=== PATIENT | female | born 1960 | race Asian ===

== ENCOUNTER 2017-08-29 16:06 | Inpatient (IN) | payer OTHER ==
[~2017-08-29] VITALS: Ht 162.6 cm; Wt 70.8 kg
[~2017-08-29 16:06] MED LIST: COZAAR100 MG PO; CRESTOR10 M1 PO
--- NOTE | 2017-08-29 16:35 | NUR ---
PT SENT TO LOBBY TO WAIT FOR AVAILABLE BED. NO DISTRESS NOTED AND ALERT AND ORIENTED
--- NOTE | 2017-08-29 17:13 | NUR ---
Patient brought into the emergency department by daughter to be evaluated for the chief complaints of nausea, vomiting, and lethargy. The patient reports that two days ago at approximately 0500 in the morning she got up to use the restroom and was "still half asleep" and hit her head on the restroom door. Patient denies syncope at that time. There is an area of ecchymosis is to the left side of the patients forehead. The patients daughter reports, as she describes, there was a hematoma in that area. The patients daughter reports that the patient became lethargic today and the nausea and vomiting began yesterday. The patient admits to two episodes of emesis today. The patient admits to currently being nauseous. Upon assessment patient has no facial droop. Handgrips are strong and equal bilaterally. Patient able to speak and clear sentences but in a low tone. Patient speech is baseline per the patients daughter who remains at bedside. PERRL. pt awaiting medical eval.
--- NOTE | 2017-08-29 17:36 | NUR ---
PT REPORTS LMP WAS 9 YEARS AGO
--- NOTE | 2017-08-29 17:45 | NUR ---
PT MEDICATED PER MD ORDER, PLEASE SEE EMAR, PT TOLERATED WELL, PT RESTING IN BED IN A POSITION OF COMFORT, INST PT AND PTS DAUGHTER AT BEDSIDE FOR PT TO PROVIDE URINE SAMPLE SOON POSSIBLE, INST TO PRESS CALL LIGHT, PT AND PTS DAUGHTER VERBALIZED UNDERSTANDING, CALL LIGHT WITHIN REACH, WILL CONTINUE TO MONITOR
[2017-08-29 18:03] LABS: RED CELL DISTRIBUTION WIDTH 12.8 % (11.5-14.5)
[2017-08-29 18:10] LABS: PLATELET COUNT 496 x10^3mcL (130-400)
[2017-08-29 18:20] LABS: BAND NEUTROPHIL 4 % (0-10); BASOPHIL 0 % (0-2); MONOCYTE 4 % (0-7); SEGMENTED NEUTROPHILS 86 % (37-75)
[2017-08-29 18:21] LABS: rbc morphology (normal/abnorm) NORMAL (NORMAL)
[2017-08-29 18:31] LABS: FREE T4 1.25 ng/dL (0.76-1.46)
[2017-08-29 18:54] LABS: T3 TOTAL 0.55 ng/mL
--- NOTE | 2017-08-29 19:00 | NUR ---
EPORT RECEIVED FROM DAY SHIFT RN VSS NO SIGN OF DISTRESS PT TO CT AT THIS TIME AWAIT NEW ORDERS/RESULTS AND DISPO, CONT TO MONITOR
--- NOTE | 2017-08-29 19:08 | NUR ---
LAB AT BEDSIDE FOR BLOOD DRAW
--- NOTE | 2017-08-29 19:14 | NUR ---
PT TAKEN TO CT VIA [facility] IN A STABLE CONDITION
[2017-08-29 19:25] LABS: microscopic required? NO
--- NOTE | 2017-08-29 19:43 | NUR ---
IVF AND MEDICATION GIVEN PER MD ORDER
[2017-08-29 19:53] LABS: UA SPECIFIC GRAVITY >=1.030 (1.005-1.035); urine erythrocyte NEGATIVE (NEGATIVE)
--- NOTE | 2017-08-29 20:00 | NUR ---
LACTIC ACID 2.4 RECEIVED INFORMATION FROM LAB INFORMED OF SAME
[2017-08-29 20:27] LABS: BILIRUBIN TOTAL 1.42 mg/dL (0.20-1.00); CHOLESTEROL/HDL RATIO 3.9
[2017-08-29 20:31] LABS: TOTAL PROTEIN, SERUM 9.3 g/dL (6.4-8.2)
[2017-08-29 20:46] LABS: CALCIUM 9.5 mg/dL (8.5-10.1); CARBON DIOXIDE 15.4 mmol/L (21-32); CREATININE SERUM 1.4 mg/dL (0.6-1.0); POTASSIUM SERUM 5.4 mmol/L (3.5-5.1)
--- NOTE | 2017-08-29 20:47 | NUR ---
MEDICATIONS AND IVF UP PER MD ORDER PT RESTING FAMILY AT BEDSIDE NO SIGN OF DISTRESS AWAITING NEW ORDERS PT TO BE ADMIT
[2017-08-29] MEDS ORDERED: HUMALOG100 UNIT/1 (21:06)
[2017-08-29] MEDS ORDERED: LANTUS SOLOS100 U/M1 (21:06)
--- NOTE | 2017-08-29 21:23 | NUR ---
PT GIVEN 14 U INSULIN PER MD
--- NOTE | 2017-08-29 21:58 | NUR ---
REPORT GIVEN TO POWER RICH ALL QUESTIONS ASKED AND ANSWERED PT TRANSFERED TO ICU 3 VIA [facility] IN STABLE CONDITION W/ ALL PERSONAL BELONGINGS
--- NOTE | 2017-08-29 22:00 | NUR ---
PT ARRIVED ON GURNEY ESCORTED BY ED RN. PT IS AOX4. PT FOLLOWS COMMANDS. PT OPENS EYES SPONTANEOUSLY. SPEECH IS SLOW AND LOW IN VOLUME. GAG REFLEX NOTED. BILAT PUPILLARY REPSONSE 3MM, BRISK. NO S/S OF HEADACHE NOTED. NO SCLERAL EDEMA NOTED. NASAL CANNULA IN PLACE TO NARES, 2 LITERS OXYGEN. ORAL MUCOSA PINK AND DRY. TRACHEA MIDLINE. NO EENT DRAINAGE NOTED AT THIS TIME. S1 S2 NOTED, HEART TONES AND RHYTHM REGULAR. CHEST WALL STABLE AND INTACT. NO S/S OF CHEST PAIN, SYNCOPE, DIZZINESS. NORMAL SINU RHYTHM. CLEAR LUNG SOUNDS NOTED TO BUL, AND BBA. CHEST RISE SYMMETRICAL. NO S/S OF SOB NOTED AT THIS TIME. ABDOMEN IS SOFT, ROUND AND NONTENDER TO PALPATION. ACTIVE BOWEL SOUNDS NOTED TO ALL 4 QUADRANTS. NO BM NOTED AT THIS TIME. PT IS NPO AT THIS TIME. NO S/S OF N/V NOTED. NO LABIAL EDEMA OR VAGINAL DISCHARGE NOTED. MODERATE PERIPHERAL PULSES NOTED TO BUE, BLE. SKIN IS DRY AND WARM TO PALAPTION. SKIN COLOR IS CONSISTENT WITH ETHNICITY. IV TO LEFT ARM, PATENT TO FLUSH, DRESSING CDI. WILL CONTINUE TO PROVIDE CARE PER PROTOCOL.
--- NOTE | 2017-08-29 22:03 | NUR ---
AGENCY DOCUMENTATION DONE BY Staff Name/Title - :XAVIER KEATING Azendoomanjit User ID - : Agency Name - :[facility] Time Documented - From - : To - :
[2017-08-29 22:16] LABS: PHOSPHOROUS 7.8 mg/dL (2.5-4.9)
--- NOTE | 2017-08-29 23:00 | NUR ---
RIJ CENTRAL LINE PLACED BY DR. DURÁN. PT IS ASLEEP WITH NO S/S OF SOB NOTED. MODERATE PERIPHERAL PULSES NOTED TO BUE, AND BLE. SKIN IS DRY AND WARM TO PALPATION. SKIN COLOR IS CONSISTENT WITH ETHNICITY. IV TO LEFT HAVD, PATENT TO FLUSH. INFUSING 250 ML/HR OF NS INTO IV. PT ON INSULIN DRIP 0.1 UNITS/KG/HR. WILL CONTINUE TO PROVIDE CARE PER PROTOCOL.
[2017-08-29 23:05] VITALS: BP 118/60
[2017-08-30 00:17] LABS: CALCIUM 7.8 mg/dL (8.5-10.1); CHLORIDE SERUM 101 mmol/L (98-107); GFR1 > 60 mL/min; GLUCOSE SERUM 281 mg/dL (74-106); MAGNESIUM 1.9 mg/dL (1.8-2.4); PHOSPHOROUS 4.3 mg/dL (2.5-4.9); POTASSIUM SERUM 4.5 mmol/L (3.5-5.1); SODIUM SERUM 134 mmol/L (136-145)
--- NOTE | 2017-08-30 00:33 | NUR ---
[facility] REPORT STATES THAT CENTRAL LINE IS IN PLACE. WILL CONTINUE TO PROVIDE CARE PER PROTOCOL.
--- NOTE | 2017-08-30 01:03 | NUR ---
ANION GAP IS 12. WILL CONTINUE TO PROVIDE CARE PER PROTOCOL.
--- NOTE | 2017-08-30 02:09 | NUR ---
PT BLOOD SUGAR IS 192. I TITRATED INSULIN DRIP TO 0.05 UNITS/KG/HR. I ALSO PAGED DR. DURÁN TO GET AN ORDER FOR D5 1/2NS SO I MAY CHANGE THE PTS FLUIDS SUGGESTED ON THE [facility] DKA PROTOCOL.
--- NOTE | 2017-08-30 02:24 | NUR ---
STARTED PT ON D5 1/2 NS @RATE OF 150 ML/HR. WILL CONTINUE TO PROVIDE CARE PER PROTOCOL.
--- NOTE | 2017-08-30 02:26 | NUR ---
TITRATED D5 1/2 NS TO 180 ML/HR. WILL CONTINUE TO PROVIDE CARE PER PROTOCOL.
--- NOTE | 2017-08-30 02:55 | NUR ---
D5 1/2NS TITRATED TO 200 ML/HR. WILL CONTINUE TO PROVIDE CARE PER PROTOCOL.
[2017-08-30 03:02] VITALS: BP 98/48
[2017-08-30 05:03] LABS: BASOPHIL % 0.3 % (0-2); PLATELET COUNT 388 x10^3mcL (130-400); RED CELL DISTRIBUTION WIDTH 12.8 % (11.5-14.5)
[2017-08-30 05:14] LABS: CALCIUM 7.4 mg/dL (8.5-10.1); CARBON DIOXIDE 22.6 mmol/L (21-32); CHLORIDE SERUM 105 mmol/L (98-107); CREATININE SERUM 0.8 mg/dL (0.6-1.0); GFR1 > 60 mL/min; GLUCOSE SERUM 195 mg/dL (74-106); MAGNESIUM 1.8 mg/dL (1.8-2.4); PHOSPHOROUS 3.2 mg/dL (2.5-4.9); POTASSIUM SERUM 3.8 mmol/L (3.5-5.1); SODIUM SERUM 136 mmol/L (136-145)
--- NOTE | 2017-08-30 05:25 | NUR ---
SPOKE WITH SR. DURÁN. HE STATED THAT WE WILL WAIT FOR THE OTHER LAB RESULTS TO CALCULATE THE ANION GAP. WILL CONTINUE TO PROVIDE CARE PER PROTOCOL.
[2017-08-30 07:30] VITALS: BP 100/62
[2017-08-30 08:45] LABS: CALCIUM 7.5 mg/dL (8.5-10.1); CARBON DIOXIDE 23.4 mmol/L (21-32); CHLORIDE SERUM 105 mmol/L (98-107); CREATININE SERUM 0.7 mg/dL (0.6-1.0); GFR1 > 60 mL/min; GLUCOSE SERUM 177 mg/dL (74-106); MAGNESIUM 1.8 mg/dL (1.8-2.4); PHOSPHOROUS 2.7 mg/dL (2.5-4.9); POTASSIUM SERUM 3.6 mmol/L (3.5-5.1); SODIUM SERUM 136 mmol/L (136-145)
--- NOTE | 2017-08-30 09:10 | NUR ---
PATIENT ROUNDS WITH DR. REA AND RESIDENTS. CHARGE NURSE AND PRIMARY NURSE AT BEDSIDE. UPDATES PROVIDED AND POC DISCUSSED. WILL CONTINUE TO MONITOR.
--- NOTE | 2017-08-30 09:25 | NUR ---
MADE AWARE PATIENTS ANION GAP IS CLOSED WILL CONTINUE TO MONITOR.
--- NOTE | 2017-08-30 09:31 | NUR ---
O2 SAT 99-100%, TITRATED O2 TO 1L, DENIES SOB, NO RESPIRATORY DISTRESS NOTED, CALL LIGHT WITHIN REACH, AND WILL CONTINUE TO MONITOR.
[2017-08-30 10:18] LABS: AMPHETAMINE QUAL UR NONE DETECTED (NEG <=1000)
--- NOTE | 2017-08-30 10:50 | NUR ---
D/C INSULIN DRIP AND D5 1/2 NS, NS STARTED AT 110ML/HR TO CENTRAL LINE TO RIJ, PATIENT EATING CLEAR LIQUID DIET, CALL LIGHT WITHIN REACH, AND WILL CONTINUE TO MONITOR.
[2017-08-30 11:54] VITALS: BP 114/59
--- NOTE | 2017-08-30 12:16 | NUR ---
O2 TURNED OFF AT THIS MOMENT, O2 SAT 99%, DENIES SOB, RESPIRAITONS EVEN AND UNLABORED, WILL CONTINUE TO MONITOR.
--- NOTE | 2017-08-30 14:18 | NUR ---
ENDORSED CARE TO MEERA STEVE, ALL QUESTIONS AND CONCERNS ADDRESSED.
--- NOTE | 2017-08-30 15:41 | NUR ---
REPORT GIVEN TO LEANDRO STEVE. ALL CARE ENDORSED.
--- NOTE | 2017-08-30 15:41 | NUR ---
PT IS AOX4, BREATHING E/U ON ROOM AIR. PT IS STABLE, NO C/O PAIN, CP, N/V/D. TRANSFERING PT TO [facility] VIA WHEELCHAIR.
[2017-08-30 16:00] VITALS: BP 116/56
--- NOTE | 2017-08-30 16:00 | NUR ---
PT TRANSFERRED FROM ICU. A/OX4. NO REPORT OF PAIN. NO SIGN OF ACUTE DISTRESS. VS STABLE. IV FLUIDS FLOWING. NO REPORT OF NAUSEA. BED IN LOW POSITION. CALL LIGHT WITHIN REACH. BED IN LOW POSITION. WILL CONTINUE TO MONITOR.
--- NOTE | 2017-08-30 18:08 | NUR ---
PT LAYING IN BED. A/OX4. NO REPORT OF PAIN. NO SIGN OF ACUTE DISTRESS. IV FLUIDS FLOWING. BED IN LOW POSITION. CALL LIGHT WITHIN REACH. WILL ENDORSE TO ONCOMING SHIFT.
--- NOTE | 2017-08-30 18:52 | NUR ---
NURSING CO-SIGN THE DOCUMENTATION ENTERED BY THE RN SALIMA HAS BEEN REVIEWED. REVIEWED/CO-SIGNED BY: Claribel Lyons DOCUMENTATION DONE BY:HOANG RAE
--- NOTE | 2017-08-30 19:29 | NUR ---
AOX4. TELE #9, NSR. LUNGS CLEAR ON RA. PULSES PALPABLE, NO EDEMA. BOWEL SOUNDS ACTIVE. AMBULATORY. SKIN INTACT. DENIES PAIN. SL TO RIGHT HAND, CDI. NS @ 110 ML/HR TO RIGHT IJ, DRESSING CDI. ALL PORTS PATENT. BED IN LOW POSITION, CALL LIGHT IN REACH. INSTRUCTED TO CALL FOR ASSISTANCE.
[2017-08-30 21:48] VITALS: BP 117/60
--- NOTE | 2017-08-31 03:21 | NUR ---
BREATHING EVEN AND UNLABORED. NO ACUTE DISTRESS NOTED. WILL CONTINUE TO MONITOR.
[2017-08-31 05:57] VITALS: BP 137/79
--- NOTE | 2017-08-31 06:09 | NUR ---
VSS. NO ACUTE CHANGES. WILL ENDORSE TO ONCOMING RN.
[2017-08-31 06:19] LABS: CALCIUM 7.8 mg/dL (8.5-10.1); CARBON DIOXIDE 25.1 mmol/L (21-32); CHLORIDE SERUM 111 mmol/L (98-107); CREATININE SERUM 0.6 mg/dL (0.6-1.0); GFR1 > 60 mL/min; GLUCOSE SERUM 121 mg/dL (74-106); POTASSIUM SERUM 3.5 mmol/L (3.5-5.1); SODIUM SERUM 141 mmol/L (136-145)
[2017-08-31 06:40] LABS: BASOPHIL % 1.2 % (0-2); PLATELET COUNT 303 x10^3mcL (130-400); RED CELL DISTRIBUTION WIDTH 13.3 % (11.5-14.5)
--- NOTE | 2017-08-31 07:25 | NUR ---
AAO X4.DENIES ANY PAIN/DISCOMFORT.LUNGS CLEAR.ON SR ON THE MONITOR.IVF NS GOING AT 110 ML/HR INFUSING WELL.CALL LIGHT WITHIN REACH.INSTRUCTED TO CALL FOR ANY PAIN/DISCOMFORT.RIJ WITH TLC ALL LINES PATENT.WILL CONTINUE TO MONITOR PT.
--- NOTE | 2017-08-31 08:35 | NUR ---
AND MEDICINE TEAM AT BEDSIDE.INFORMED PT ABOUT THE PLAN OF CARE.DKA IS CONTROLLED.WILL ADVANCE DIET.PT VERBALIZES UNDERTANDING.
[2017-08-31 09:56] VITALS: BP 145/68
[2017-08-31 13:20] VITALS: BP 147/69
[2017-08-31 14:19] VITALS: BP 147/69
--- NOTE | 2017-08-31 14:30 | NUR ---
D/C CENTRAL LINE. BLUE TIP IN PLACE.PUT PRESSURE FOR 10 MINUTES PUT BETADINE ON.PT TOLERATED IT WELL.PUT [place] DRESSING.
--- NOTE | 2017-08-31 15:30 | NUR ---
HERE TO WILDLIFE MANAGER PT.WENT DOWN VIA WHEELCHAIR ACCOMPANIED BY AND [employer] LIAISON OFFICER.
--- NOTE | 2017-08-31 15:32 | NUR ---
PT D/C TO HOME IV AND MONITOR D/C'D.DISCHARGE INSTRUCTION GIVEN PT VERBALIZES UNDERSTANDING.AWAITING FOR TO COME MANAGEMENT ACCOUNTANT PT.
[2017-08-31 17:14] VITALS: BP 120/70
== END 2017-08-31 16:00 | disposition home or self-care (01) | DRG 871 ==
LOC: ED 16:06 → DU 20:37 → IC 20:37 → DU 08-30 15:54
PROVIDERS: Family Medicine; Specialist; ADMIT Family Medicine Sports Medicine
PROC: 05HM33Z Insertion of Infusion Device into Right Internal Jugular Vein, Percutaneous Approach (ICD-10-PCS; principal; 2017-08-30)
PROC: B543ZZA Ultrasonography of Right Jugular Veins, Guidance (ICD-10-PCS; 2017-08-30)
DX: A41.9 Sepsis, unspecified organism (principal); N17.0 Acute kidney failure with tubular necrosis; K85.90 Acute pancreatitis without necrosis or infection, unspecified; E11.10 Type 2 diabetes mellitus with ketoacidosis without coma; E87.1 Hypo-osmolality and hyponatremia; D68.69 Other thrombophilia; R65.20 Severe sepsis without septic shock; E87.5 Hyperkalemia; E83.39 Other disorders of phosphorus metabolism; E78.5 Hyperlipidemia, unspecified; I10 Essential (primary) hypertension; E86.0 Dehydration
CPT/HCPCS: 36556; 36600; 82962; 83880; 84439; J0696; J1170; J1200; J1642; J1815; J1885; J2060; J2405; J3490; J7030; J7040; Q0092